=== PATIENT | female | born 1995 | race Caucasian/White ===

== ENCOUNTER 2016-06-26 23:19 | Emergency (ER) | payer MEDICAID ==
[~2016-06-26] VITALS: Ht 152.4 cm; Wt 89.4 kg
[~2016-06-26 23:19] MED LIST: BIRTH CONTROL PILL PO; LORTAB 5/500 501 TAB PO
[2016-06-27 00:21] LABS: HEMOGLOBIN 12.6 g/dL (12.2-16.2); LYMPH # 4.3 K/mm3 (0.7-4.5); LYMPH % 41.7 % (10-50.0)
[2016-06-27 00:37] LABS: URINE BILIRUBIN - DIPSTICK NEGATIVE (NEG); URINE BLOOD NEGATIVE (NEG)
--- NOTE | 2016-06-27 01:19 | Emergency Room Report ---
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 N Clinical Suspician of Infection? N Mental Status: 1 - Regular (Normal Baseline) Sepsis Risk:Low Sepsis Risk Have you (or family members/close friends) recently traveled outside the [place]? N If Yes, where/when: Have you had exposure to infectious disease within the past month? TB? Other? Specify: Source patient, RN notes reviewed, family, old records Exam Limitations no limitations Comment pt with 1 day hx of upper abd pain with vomiting w/o fever or melena Cardiac Chest Pain Chest pain indicative of cardiac No Timing/Duration this evening Severity moderate ALLERGIES Coded Allergies: Penicillins (UNKNOWN 06/12/15) Home Medications Reported Medications No Known Home Medications History Medical History General CAD? No Angina: No MS: No Hypertension? No Hyperlipidemia? No CHF? No DVT? No PE? No COPD? No Asthma? No Anemia? No GERD? No Gastric ulcers? No GI Bleed? No Hernia? No Thyroid Problems? No Hypothyroidism? No CVA? No Seizures? No Diabetes? No Renal Insuffiency? No End Stage Renal Disease? No UTI? No Stones? No BPH? No GB Disease: No Nephritic Syndrome? No Asplenia? No Hepatitis? No Sickle Cell Disease? No Arthritis? No Migraines? No Cataracts? No Glaucoma? No MRSA? No HIV? No TB? No Anxiety? No Depression? No Cancer? No More? No Immunization Hx DT/Tetanus 1-4 YRS Surgical Hx Previous Surgery?Y [employer] Hx LMP 1 Month Ago Social History Smoking Hx Smoker: Former Smoker Tobacco: No Packs/day < 1 Pack Alcohol Alcohol: No Drugs none Review of Systems All Other Systems Reviewed and Negative Constitutional denies fever Eyes denies drainage ENT denies: ear pain, epistaxis, throat pain. Respiratory denies cough, denies shortness of breath, denies wheezing Cardiovascular denies chest pain, denies palpitations Gastrointestinal see HPI, abdominal pain, denies diarrhea, nausea, vomiting Genitourinary denies: abnormal vaginal bleeding, dysuria, frequency, hesitancy, hematuria. Musculoskeletal denies joint pain, denies joint swelling Skin denies rash Psychiatric/Neurological denies headache, denies seizure Physical Exam Vital Signs Vital Signs Date Time Temp Pulse Resp B/P Pulse O2 O2 Flow FiO2 Ox Delivery Rate 06/26 2327 98.8 81 20 131/71 99 - WBC >12,000 or <4,000 or 10% bands? 2 or more SIRS Criteria Met? B/P:131/71 MAP:91 Creatinine >2.0? UA output<0.5ml/kg/hr for 2 hrs? Platelet count >100,000? Lactate >2.0mmol/1? INR >1.2 or PTT > than 60 sec? Evidence of Organ Dysfunction? Provider documented clinical suspician of infection? N Sepsis Criteria Count: 1 Sepsis Risk: Low Sepsis Risk General Appearance no apparent distress Eye Exam - bilateral eye PERRL, bilateral eye EOMI Ear, Nose, Throat normal ENT inspection Neck supple Respiratory Status No: respiratory distress. Lung Sounds bilateral: lungs clear. Cardiovascular regular rate/rhythm, no gallop, no JVD, no murmur, no rub Peripheral Pulses Pulses normal Yes Gastrointestinal soft, no organomegaly, no pulsatile mass, no guarding, no rebound Back no CVA tenderness Extremities normal inspection Strength 4 Upper Ext (L), 4 Upper Ext (R), 4 Lower Ext (L), 4 Lower Ext (R) Neurologic alert, rn integrated II-XII nml as tested, no motor/sensory deficits Reflexes Reflexes normal Yes Mental status normal mood/affect Skin intact Medical Decision Making LABS/Meds/Orders Pt receiving controlled substance in ED? No Results/Orders Laboratory Tests 06/27/16 0015: Sodium 140, Potassium 3.8, Chloride 105, Carbon Dioxide 26, BUN 9, Creatinine 0.8, Estimated Creat Clear 157, Estimated GFR (MDRD) 91, Glucose 105, Calcium 8.7, Total Bilirubin 0.2, AST 11 L, ALT 20, Alkaline Phosphatase 63, Total Protein 7.2, Albumin 3.6, Globulin 3.6 H, Albumin/Globulin Ratio 1.0 L, Amylase 29, Lipase 90, WBC 10.2, RBC 4.06 L, Hgb 12.6, Hct 37.4, MCV 92.1, RDW 12.6, Plt Count 243, MPV 6.2 L, Gran % 51.3, Gran # 5.3, Lymphocytes % 41.7, Monocytes % 5.6, Eosinophils % 0.8, Basophils % 0.5, Lymphocytes # 4.3, Monocytes # 0.6, Eosinophils # 0.1, Basophils # 0.1, PUBS MCHC 33.6, MCH 31.0 06/27/16 0002: Urine Color YELLOW, Urine Appearance CLEAR, Urine pH 6.0, Ur Specific [place] 1.015, Urine Protein NEGATIVE, Urine Ketones NEGATIVE, Urine Blood NEGATIVE, Urine Nitrate NEGATIVE, Urine Bilirubin NEGATIVE, Urine Urobilinogen 0.2, Ur Leukocyte Esterase 1+ H, Urine RBC OCC, Urine WBC 3-5, Ur Squamous Epith Cells 5-10, Urine Bacteria 1+, Hyaline Casts OCC, Urine Mucus OCC, Urine Glucose NEGATIVE Current Medication Orders Sig/Breana Start time Last Medication Dose Route Stop Time Status Admin Multi-Ingredient GI 60 ML ONCE ONE 06/26 2344 DC 06/26 Drug PO 06/26 234 2350 Sodium Chloride 1,000 ML .Q1H1M 06/26 2344 DC 06/26 IV 06/27 0045 2350 Sodium Chloride 10 ML PRN PRN 06/26 2345 AC IV 06/27 233 Sodium Chloride 10 ML PRN PRN 06/26 2345 AC IV 06/27 2333 Sodium Chloride 20 ML PRN PRN 06/26 2345 AC IV 06/27 2333 Sodium Chloride 1,000 ML .STK-MED ONE 06/27 2335 DC IV Multi-Ingredient GI 0 .STK-MED ONE 06/26 2334 DC Drug PO Orders Procedure Date/time Status DIET-NOTHING BY MOUTH 06/27 B Active IV SALINE LOCK 06/26 2332 Active URINALYSIS/COMPLETE 06/26 2332 Complete URINE 06/26 2332 Complete LIPASE 06/26 2332 Complete COMPLETE METABOLIC PANEL 06/26 2332 Complete CBC WITH AUTO DIFF 06/26 2332 Complete AMYLASE 06/26 2332 Complete Departure Departure Time of Disposition 0110 Disposition DC Home or Self Care(routine) Clinical Impression Primary Impression: Abdominal pain Qualifiers: Abdominal location: epigastric Qualified Code: R10.13 - Epigastric pain Secondary Impressions: Qualifiers: Weeks of gestation: less than 8 weeks Qualified Code: Z3A.01 - Less than 8 weeks gestation of Condition STABLE Referrals Clyde Hogan MD (Family) Patient Instructions DI for -- Discomforts and Remedies, DI for Vomiting -- Adult Additional Instructions fluids and call pcp in am Discharge Counseling Counseled pt/family regarding diagnosis, test results, follow up needs Prescriptions Current Visit Scripts No Known Home Medications ED Critical Care [place] [address]113
[2016-06-27 01:29] VITALS: BP 134/68
== END 2016-06-27 01:32 | disposition home or self-care (01) ==
LOC: ER 23:19
PROVIDERS: Emergency Medicine
DX: R10.13 Epigastric pain (principal); Z3A.01 Less than 8 weeks gestation of pregnancy

== ENCOUNTER 2017-01-10 20:44 | Outpatient (CLI) | payer MEDICAID ==
[~2017-01-10] VITALS: Ht 152.4 cm; Wt 96.8 kg
[2017-01-10 21:08] LABS: URINE BILIRUBIN - DIPSTICK NEGATIVE (NEG); URINE BLOOD NEGATIVE (NEG)
[2017-01-10 21:11] VITALS: BP 137/87
[2017-01-10] MEDS ORDERED: CLARITIN 10MG T10 MG PO (21:17)
[2017-01-10 21:18] LABS: URINE RENAL CELLS 3-+5 #/HPF
[2017-01-10] MEDS ORDERED: FLINTSTONES CO1 EAC1 PO (21:18)
== END 2017-01-10 22:00 | disposition home or self-care (01) ==
LOC: OBOUT 20:44 → OB 20:44 → OBOUT 22:00
PROVIDERS: Obstetrics & Gynecology
DX: O26.93 Pregnancy related conditions, unspecified, third trimester (principal); Z3A.34 34 weeks gestation of pregnancy; R10.2 Pelvic and perineal pain